=== PATIENT | male | born 1985 | race Two or more races ===

== ENCOUNTER 2016-09-25 09:50 | Emergency (ER) | payer BC, OTHER ==
[2016-09-25 10:05] VITALS: BP 134/83
--- NOTE | 2016-09-25 10:55 | UC ---
FLU HPI - HPI Summary HPI Summary: Fever, cough, body aches, and RAMSEY starting 3 days ago. - History of Current Complaint Chief Complaint: UCHeadache Stated Complaint: FEVER, HEADACHE Time Seen by Provider: 09/25/16 10:32 Hx Obtained From: Patient Onset/Duration: Gradual Onset, Lasting Days Severity Currently: Moderate Severity Initially: Mild Associated Signs & Symptoms: Positive: Fever, Myalgia, Cough, Headache - Allergy/Home Medications Allergies/Adverse Reactions: Allergies Allergy/AdvReac Type Severity Reaction Status Date / Time No Known Allergies Allergy Verified 06/21/15 13:05 Home Medications: Home Medications Egslbakoqyyob-Vxybkmlnsz-Bmiqz [Nyquil Severe Cold/Flu 5-6.25-10-325 mg/15Ml] 1 liq PO 09/25/16 [History] PMH/Surg Hx/FS Hx/Imm Hx Previously Healthy: Yes Endocrine History Of: Denies: Diabetes, Thyroid Disease Cardiovascular History Of: Denies: Cardiac Disorders, Hypertension Respiratory History Of: Denies: COPD, Asthma GI/ History Of: Denies: Ulcer - Surgical History Surgical History: None - Family History Known Family History: Negative: Blood Disorder - Social History Occupation: Unemployed Alcohol Use: Rare Substance Use Type: None Smoking Status (MU): Current Some Day Smoker Review of Systems Constitutional: Fever, Chills, Fatigue Skin: Negative Eyes: Negative ENT: Negative Respiratory: Cough Cardiovascular: Negative Gastrointestinal: Negative Genitourinary: Negative Motor: Negative Neurovascular: Negative Musculoskeletal: Myalgia Neurological: Negative Psychological: Negative All Other Systems Reviewed And Are Negative: Yes Physical Exam Triage Information Reviewed: Yes Appearance: Well-Appearing, No Pain Distress, Well-Nourished Vital Signs: Initial Vital Signs Temp 100.9 F 09/25/16 10:01 Pulse 96 09/25/16 10:01 Resp 18 09/25/16 10:01 BP 134/83 09/25/16 10:01 Pulse Ox 98 09/25/16 10:01 Vital Signs Reviewed: Yes Eye Exam: Normal Eyes: Positive: Conjunctiva Clear ENT: Positive: Hearing grossly normal, Pharynx normal, Nasal congestion, TMs normal Dental Exam: Normal Neck exam: Normal Neck: Positive: Supple, Nontender, No Lymphadenopathy Respiratory Exam: Normal Respiratory: Positive: Chest non-tender, Lungs clear, Normal breath sounds, No respiratory distress, No accessory muscle use Cardiovascular Exam: Normal Cardiovascular: Positive: RRR, No Murmur Musculoskeletal Exam: Normal Neurological Exam: Normal Psychological Exam: Normal Skin Exam: Normal Flu Course/Dx - Differential Dx/Diagnosis Provider Diagnoses: influenza Discharge - Discharge Plan Condition: Stable Disposition: HOME Prescriptions: Albuterol HFA INHALER* [Ventolin HFA Inhaler*] 1 - 2 puff INH Q4H PRN #1 mdi PRN Reason: wheeze, cough Benzonatate CAP* [Tessalon CAP*] 100 mg PO TID PRN #30 cap PRN Reason: Cough Guaifenesin-Codeine [Guaiatussin AC] 5 - 10 ml PO Q6H #120 ml MDD 40mL Patient Education Materials: Influenza (ED) Referrals: User,Conversion [Primary Care Provider] - Additional Instructions: Come back here if you are not fever-free by Wednesday, or at any time if you are having difficulty breathing. INHALED BRONCHODILATORS: You have received a prescription for an inhaled bronchodilator -- a medication which stimulates the airways in the lung to dilate. This improves the flow of air in asthma, bronchitis, and emphysema. These medicines have some similarity to adrenaline, and can cause similar side effects: shakiness, racing heart, and a sense of nervousness. These side effects can be reduced with the use of a spacer and usually decrease with time. Use 1-2 puffs up to every 4 hours as needed for wheezing or tightness in your chest. It may be helpful to use preventatively, such as before bedtime or before going outside into cold air. IF YOU FIND THAT YOU ARE CONSISTENTLY NEEDING THE INHALER MORE THAN 6 TIMES PER DAY, PLEASE CALL OR RETURN FOR FURTHER EVALUATION. COUGH-SUPPRESSANT & EXPECTORANT MEDICATION FOR SLEEPING ONLY: You are to use a cough medication as needed for relief of NIGHTTIME/ BEDTIME symptoms. This medicine is a combination of an expectorant (to make the mucous thinner and more easily "coughed up") and a cough suppressant (to reduce the frequency of coughing). The cough-suppressant medicine is related to narcotics. You may experience mild nausea and sleepiness. Some patients who are very sensitive to narcotics may have stomach pain from this medicine. Taking the medicine with food reduces these side effects. Do not drive or work with machinery until you know how this medicine affects you. The expectorant should have no side effects. Call your doctor if you develop shortness of breath, hives, rash, itching, lightheadedness, or severe nausea and vomiting. TESSALON: You have received a prescription for Tessalon Perles (benzonatate). This is a non-narcotic medicine for relief of cough. It usually works in about 15- 20 minutes and lasts around four hours. When they work, they are usually helpful with a lingering cough at the end of an illness. If you do not find them helpful now, wait several days and try again, as they may help your cough later on. Tessalon Perles should be swallowed. They should not be chewed or dissolved in the mouth (this can produce temporary numbing of the mouth and choking can occur). If you develop any adverse effects such as wheezing, shortness of breath, hives, rash, itching, or lightheadedness, please return at once.
== END 2016-09-25 10:56 | disposition home or self-care (01) ==
LOC: UCEAST 09:50
DX: J11.1 Influenza due to unidentified influenza virus with other respiratory manifestations (principal)
CPT/HCPCS: 99212; G0463

== ENCOUNTER 2017-04-12 09:59 | Emergency (ER) | payer BC ==
[2017-04-12] MEDS ORDERED: Ketorolac INJ* 30 MG/ML 1 ML VIAL IV ONE (11:32)
[2017-04-12] MEDS ORDERED: NS 0.9% 1000 ML* 1,000 ML IV ONE (11:32)
[2017-04-12] MEDS ORDERED: Ondansetron INJ* 2 MG/ML VIAL IV ONE (11:33)
[2017-04-12] MEDS ORDERED: diPHENhydraMINE IV* 50 MG/ML 1 ml VIAL (BENADRYL) IV ONE (11:33)
[2017-04-12 12:52] VITALS: BP 119/72
[2017-04-12] MEDS ORDERED: Ondansetron ODT TAB* 4 MG PO ONE ×2 (13:07→13:10)
--- NOTE | 2017-05-03 14:54 | UC ---
Tania Iyer Alfonso, scribed for Fernanda Evans DO on 04/12/17 at 1133 . Headache HPI - HPI Summary HPI Summary: This patient is a 31 year old M presenting to [facility] with a chief complaint of right sided headache since 2 days ago. Pt rates the pain 8/10 in severity. Symptoms aggravated by bring lights and alleviated by lying down. Symptoms not alleviated by Excedrin. The patient reports insomnia, photophobia, nausea, and dizziness. The patient denies vomiting, sore throat, ear ache, sinus infection, SOB, CP, rashes, and dehydration. He denies any PMHx. FHx of DM and HTN. High blood pressure noted, likely secondary to condition. - History Of Current Complaint Chief Complaint: UCHeadache Stated Complaint: HEAD PAIN Time Seen by Provider: 04/12/17 10:18 Hx Obtained From: Patient Onset/Duration: Sudden Onset - 2, Lasting Days - 2, Still Present Onset Of Symptoms: Sudden, Still Present Currently Pain Is: Current Pain Scale(0-10)= - 8/10 Pain Intensity: 8 Pain Scale Used: 0-10 Numeric Timing: Constant Location of Headache: Other: - Right sided Aggravating Factor: Bright Lights Allevating Factors: Nothing Associated Signs And Symptoms: Positive: Other (Noted In Comments) - The patient reports insomnia, photophobia, nausea, and dizziness. The patient denies vomiting, sore throat, ear ache, sinus infection, SOB, CP, rashes, and dehydration. - Allergies/Home Medications Allergies/Adverse Reactions: Allergies Allergy/AdvReac Type Severity Reaction Status Date / Time No Known Allergies Allergy Verified 06/21/15 13:05 Home Medications: Home Medications Qkbvugb-Iiuhexkugrltd-Fvbfoiii [Excedrin Migraine] 2 tab PO 04/12/17 [History] PMH/Surg Hx/FS Hx/Imm Hx Previously Healthy: Yes - Surgical History Surgical History: None - Family History Known Family History: Positive: Hypertension, Diabetes Negative: Blood Disorder - Social History Alcohol Use: Rare Substance Use Type: None Smoking Status (MU): Former Smoker Review of Systems Constitutional: Other - Negative dehydration. Skin: Other - Negative rash and dehydration Eyes: Photophobia ENT: Other - Negative sore throat, ear ache, sinus infection. Respiratory: Other - Negative SOB Cardiovascular: Other - Negative CP Gastrointestinal: Nausea, Other - Negative vomiting Neurological: Headache, Other - Positive insomnia and dizziness; All Other Systems Reviewed And Are Negative: Yes Physical Exam Triage Information Reviewed: Yes Appearance: Well-Appearing, No Pain Distress, Well-Nourished Vital Signs: Initial Vital Signs Temp 98.5 F 04/12/17 10:05 Pulse 78 04/12/17 10:05 Resp 18 04/12/17 10:05 BP 134/74 04/12/17 10:05 Pulse Ox 100 04/12/17 10:05 Vital Signs Reviewed: Yes Eyes: Positive: Conjunctiva Clear. Negative: Discharge ENT: Positive: Hearing grossly normal, TMs normal. Negative: Tonsillar swelling , Tonsillar exudate, Muffled/hoarse voice Neck exam: Normal Neck: Positive: Supple Respiratory: Positive: Lungs clear, Normal breath sounds, No respiratory distress, No accessory muscle use Cardiovascular: Positive: RRR, No Murmur Abdomen Description: Positive: Nontender, Soft Bowel Sounds: Positive: Present Musculoskeletal Exam: Normal Musculoskeletal: Positive: Strength Intact Neurological Exam: Other - A&Ox3, CN II-XII INTACT, SENSORY MOTOR INTACT, REFLEXES INTACT, NO CEREBELLAR SIGNS, FACIAL SYMMETRY, NEGATIVE ROMBERG, NORMAL GAIT Psychological: Positive: Age Appropriate Behavior Skin: Positive: Other - Dry, warm, normal color Re-Evaluation - Re-Evaluation First Eval Re-Evaluation Time: 13:04 Change: Improved Comment: Patient notes significant subjective improvement. No dizziness, nausea , or photophobia. He rates the current pain 4/10 in severity. Headache Course/Dx - Differential Dx/Diagnosis Differential Diagnosis/HQI/PQRI: Migraine, Sinus Headache, Tension Headache, Viral Syndrome Provider Diagnoses: migraine Discharge - Discharge Plan Condition: Stable Disposition: HOME Patient Education Materials: Migraine Headache (ED) Referrals: Erika Landa MD [Medical Doctor] - 3 Days Non Staff,Doctor [Primary Care Provider] - Additional Instructions: WE HAVE TREATED YOU FOR A MIGRAINE WITH IV FLUIDS, A TORADOL INJESTION, BENADRYL AND ZOFRAN. THIS HAS HAD SIGNIFICANT BENEFIT FOR YOU. IF YOU STILL HAVE SX IN 4-6 HOURS, YOU CAN TAKE ANOTHER BENADRYL. IF YOU HAVE NAUSEA AGAIN, YOU CAN TAKE A ZOFRAN. The documentation as recorded by the Tania bernal Alfonso accurately reflects the service I personally performed and the decisions made by , Fernanda Evans DO.
== END 2017-04-12 13:57 | disposition home or self-care (01) ==
LOC: UCEAST 09:59
DX: G43.909 Migraine, unspecified, not intractable, without status migrainosus (principal); R11.0 Nausea; Z87.891 Personal history of nicotine dependence
CPT/HCPCS: 96361; 96374; 96375; 99212; A9270-GY; G0463; J1200; J1885; J2405

== ENCOUNTER 2018-08-03 16:04 | Emergency (ER) | payer BC, OTHER ==
--- NOTE | 2018-08-03 16:12 | UC ---
Ear Complaint HPI - HPI Summary HPI Summary: 32 yo male presents with RIGHT ear pain for the last week. He tells me that about 2 weeks ago he had "flu symptoms" - cough, sinus congestion, hot/cold chills, and body aches. Those symptoms have resolved, but over the last week has had increasingly painful right ear pain and pressure that causes him a headache. He has not been taking anything OTC for this discomfort. Denies fever , chills, dizziness, trauma, changes in hearing, sinus symptoms, sore throat. - History of Current Complaint Stated Complaint: EAR ACHE, AND HEADACHE Time Seen by Provider: 08/03/18 16:06 Hx Obtained From: Patient Severity Initially: Mild Severity Currently: Moderate Pain Intensity: 7 Pain Scale Used: 0-10 Numeric - Allergies/Home Medications Allergies/Adverse Reactions: Allergies Allergy/AdvReac Type Severity Reaction Status Date / Time No Known Allergies Allergy Verified 08/03/18 16:12 PMH/Surg Hx/FS Hx/Imm Hx - Additional Past Medical History Additional PMH: None - Surgical History Surgical History: None - Family History Known Family History: Positive: Hypertension, Diabetes Negative: Blood Disorder - Social History Alcohol Use: Rare Substance Use Type: None Smoking Status (MU): Former Smoker Review of Systems All Other Systems Reviewed And Are Negative: Yes Constitutional: Positive: Negative Skin: Positive: Negative Eyes: Positive: Negative ENT: Positive: Ear Ache Respiratory: Positive: Negative Cardiovascular: Positive: Negative Gastrointestinal: Positive: Negative Neurovascular: Positive: Negative Neurological: Positive: Negative Psychological: Positive: Negative Physical Exam - Summary Physical Exam Summary: GENERAL: NAD. WDWN. No pain distress. SKIN: No rashes, sores, lesions, or open wounds. HEENT: Head: AT/NC Eyes: EOM intact. Conjunctiva clear without inflammation or discharge. Ears: Hearing grossly normal. RIGHT ear: canal with moderate erythema. No drainage. TM with mild erythema and bulging. LEFT ear: WNL. TM intact. Nose: Nasal mucosa pink and moist. NTTP maxillary and frontal sinus. Throat: Posterior oropharynx without exudates, erythema, or tonsillar enlargement. Uvula midline. NECK: Supple. Nontender. No lymphadenopathy. CHEST: CTAB. No r/r/w. No accessory muscle use. Breathing comfortably and in no distress. CV: RRR. Without m/r/g. Pulses intact. NEURO: Alert. PSYCH: Age appropriate behavior. Triage Information Reviewed: Yes Vital Signs: Vital Signs: Temp Pulse Resp BP Pulse Ox 98.9 F 70 18 153/93 100 08/03/18 16:15 08/03/18 16:15 08/03/18 16:15 08/03/18 16:15 08/03/18 16:15 Vital Signs Reviewed: Yes Ear Complaint Course/Dx - Course Course Of Treatment: Otitis media right - will treat with amoxicillin 875mg - Differential Dx/Diagnosis Provider Diagnosis: Right otitis media Discharge - Sign-Out/Discharge Documenting (check all that apply): Patient Departure All imaging exams completed and their final reports reviewed: No Studies - Discharge Plan Condition: Stable Disposition: HOME Prescriptions: Amoxicillin PO (*) [Amoxicillin 875 MG (*)] 875 mg PO BID #20 tab Patient Education Materials: Ear Infection (ED) Referrals: Non Staff,Doctor [Medical Doctor] - Additional Instructions: If you develop a fever, shortness of breath, chest pain, new or worsening symptoms - please call your PCP or go to the ED. Your blood pressure was high at todays visit. Please see your primary provider within 4 weeks for recheck and re-evaluation. - Billing Disposition and Condition Condition: STABLE Disposition: Home
[2018-08-03 16:19] VITALS: BP 153/93
== END 2018-08-03 16:28 | disposition home or self-care (01) ==
LOC: UCEAST 16:04
DX: H66.91 Otitis media, unspecified, right ear (principal); Z87.891 Personal history of nicotine dependence
CPT/HCPCS: 99212; G0463

== ENCOUNTER 2018-08-08 10:20 | Emergency (ER) | payer OTHER ==
[2018-08-08 10:58] VITALS: BP 117/76
--- NOTE | 2018-08-08 11:09 | ED ---
Lower Extremity - HPI Summary HPI Summary: 32-year-old male presents with right great toe pain since yesterday. He denies any injury. He states area swollen and red. He states he drinks alcohol occasionally. He denies any numbness or tingling. He is still able to ambulate with pain. No fevers. No spreading redness. - History of Current Complaint Chief Complaint: UCLowerExtremity Stated Complaint: R FOOT PAIN Time Seen by Provider: 08/08/18 11:01 Pain Intensity: 7 - Allergies/Home Medications Allergies/Adverse Reactions: Allergies Allergy/AdvReac Type Severity Reaction Status Date / Time No Known Allergies Allergy Verified 08/08/18 10:58 PMH/Surg Hx/FS Hx/Imm Hx Endocrine/Hematology History: Denies: Hx Diabetes, Hx Thyroid Disease Cardiovascular History: Denies: Hx Hypertension Respiratory History: Denies: Hx Asthma, Hx Chronic Obstructive Pulmonary Disease (COPD) GI History: Denies: Hx Ulcer - Surgical History Surgery Procedure, Year, and Place: declined Infectious Disease History: No Infectious Disease History: Denies: Hx Hepatitis, Hx Human Immunodeficiency Virus (HIV), Traveled Outside the in Last 30 Days - Family History Known Family History: Positive: Hypertension, Diabetes Negative: Blood Disorder - Social History Alcohol Use: Rare Substance Use Type: Reports: None Smoking Status (MU): Former Smoker Review of Systems Negative: Fever Negative: Chest Pain Negative: Shortness Of Breath Positive: Myalgia - right big toe pain All Other Systems Reviewed And Are Negative: Yes Physical Exam Triage Information Reviewed: Yes Vital Signs On Initial Exam: Initial Vitals Temp Pulse Resp BP Pulse Ox 98.7 F 63 18 117/76 99 08/08/18 10:54 08/08/18 10:54 08/08/18 10:54 08/08/18 10:54 08/08/18 10:54 Vital Signs Reviewed: Yes Appearance: Positive: Well-Appearing Skin: Positive: Warm, Dry, Other - mild erythema and warmth to right big toe Head/Face: Positive: Normal Head/Face Inspection Eyes: Positive: Normal, Conjunctiva Clear ENT: Positive: Pharynx normal Respiratory/Lung Sounds: Positive: Clear to Auscultation, Breath Sounds Present Cardiovascular: Positive: Normal, RRR Musculoskeletal: Positive: Strength/ROM Intact - right great toe, Other - good pulses Neurological: Positive: Normal Psychiatric: Positive: Normal Diagnostics - Vital Signs Vital Signs Temp Pulse Resp BP Pulse Ox 08/08/18 10:54 98.7 F 63 18 117/76 99 - Laboratory Lab Statement: Any lab studies that have been ordered have been reviewed, and results considered in the medical decision making process. - Radiology knee Radiology Interpretation Completed By: Radiologist Summary of Radiographic Findings: no fx Lower Extremity Course/Dx - Course Course Of Treatment: 32-year-old male presents with right great toe pain since yesterday. He denies any injury. He states area swollen and red. He states he drinks alcohol occasionally. He denies any numbness or tingling. He is still able to ambulate with pain. No fevers. No spreading redness. On exam mild edema and erythema of the right great toe. Most consistent with gout. X- ray normal. Will treat with an indomethacin. Patient understands agrees with plan. - Diagnoses Differential Diagnosis/HQI/PQRI: Positive: Fracture (Closed), Gout, Septic Arthritis Provider Diagnoses: Gouty arthritis of right great toe Discharge - Sign-Out/Discharge Documenting (check all that apply): Patient Departure All imaging exams completed and their final reports reviewed: Yes - Discharge Plan Condition: Good Disposition: HOME Prescriptions: Indomethacin CAP* [Indocin CAP*] 50 mg PO TID PRN #21 cap PRN Reason: Pain Patient Education Materials: Gout (ED) Referrals: Erika Landa MD [Primary Care Provider] - Additional Instructions: Take indomethacin three times a day until pain resolves Place ice on the area Can take Tylenol in addition for pain every 6 hours, do not use Advil, Aleve or ibuprofen follow up with primary within 5 days Return to if develop any new or worsening symptoms - Billing Disposition and Condition Condition: GOOD Disposition: Home - Attestation Statements Provider Attestation: Per institutional requirements, I have reviewed the chart, however, I was not consulted specifically or made aware of this patient by the midlevel provider. I did not personally evaluate, interact with , or disposition this patient.
== END 2018-08-08 11:45 | disposition home or self-care (01) ==
LOC: UCEAST 10:20
DX: M10.9 Gout, unspecified (principal); Z87.891 Personal history of nicotine dependence
CPT/HCPCS: 99212; G0463

== ENCOUNTER → 2018-10-27 13:38 | Emergency (ER) | payer OTHER ==
[~2018-10-27 13:38] MED LIST: Ketorolac INJ* 30 MG/ML 1 ML VIAL IM ONE
[2018-10-27 17:12] VITALS: BP 111/60
--- NOTE | 2018-10-27 17:45 | ED ---
Lower Extremity - HPI Summary HPI Summary: Patient is a 33-year-old male who presents emergency department for pain and swelling to his right foot 2 days. Patient denies any injuries or falls. Patient states he was diagnosed with gout about 2 months ago and placed on anti- inflammatories. Patient states his symptoms resolved until last few days. Patient has not aware of any change in his diet except eating scallops a few days ago. Patient otherwise denies fever, chills, nausea, vomiting. Has no past medical history. Symptoms are mild in severity. Walking and touching affected area makes symptoms worse. Nothing makes symptoms better. - History of Current Complaint Chief Complaint: EDExtremityLower Stated Complaint: PAIN IN RIGHT FOOT Time Seen by Provider: 10/27/18 15:54 Hx Obtained From: Patient Pain Intensity: 4 Pain Scale Used: 0-10 Numeric - Allergies/Home Medications Allergies/Adverse Reactions: Allergies Allergy/AdvReac Type Severity Reaction Status Date / Time No Known Allergies Allergy Verified 08/08/18 10:58 Home Medications: Home Medications Escitalopram Oxalate [Lexapro 10 mg] 10 mg PO DAILY 10/27/18 [History Confirmed 10/27/18] PMH/Surg Hx/FS Hx/Imm Hx Previously Healthy: Yes Endocrine/Hematology History: Denies: Hx Diabetes, Hx Thyroid Disease Cardiovascular History: Denies: Hx Hypertension Respiratory History: Denies: Hx Asthma, Hx Chronic Obstructive Pulmonary Disease (COPD) GI History: Denies: Hx Ulcer - Surgical History Surgery Procedure, Year, and Place: declined Infectious Disease History: No Infectious Disease History: Denies: Hx Hepatitis, Hx Human Immunodeficiency Virus (HIV), Traveled Outside the [place] in Last 30 Days - Family History Known Family History: Positive: Hypertension, Diabetes Negative: Blood Disorder - Social History Occupation: Employed Full-time Lives: With Family Alcohol Use: Rare Substance Use Type: Reports: None Smoking Status (MU): Former Smoker Review of Systems Constitutional: Negative Negative: Fever, Chills Gastrointestinal: Negative Negative: Vomiting, Nausea Positive: Other - pain to right foot All Other Systems Reviewed And Are Negative: Yes Physical Exam Triage Information Reviewed: Yes Vital Signs On Initial Exam: Initial Vitals Temp Pulse Resp BP Pulse Ox 98.1 F 69 16 128/84 98 10/27/18 13:43 10/27/18 13:43 10/27/18 13:43 10/27/18 13:43 10/27/18 13:43 Vital Signs Reviewed: Yes Appearance: Positive: Well-Appearing - Pt. sitting on bed in NAD. Family member present. Skin: Positive: Warm, Dry Head/Face: Positive: Normal Head/Face Inspection Eyes: Positive: Normal, EOMI Neck: Positive: Supple Musculoskeletal: Positive: Other - Mild edema and pain noted to right first MTP joint with minimal erythema. No wounds. Full ROM of ankle Neurological: Positive: Normal, CN Intact II-III Psychiatric: Positive: Affect/Mood Appropriate Diagnostics - Vital Signs Vital Signs Temp Pulse Resp BP Pulse Ox 10/27/18 17:12 98.9 F 64 15 111/60 100 10/27/18 15:36 98.9 F 68 16 113/85 98 10/27/18 13:43 98.1 F 69 16 128/84 98 - Laboratory Lab Statement: Any lab studies that have been ordered have been reviewed, and results considered in the medical decision making process. Lower Extremity Course/Dx - Course Course Of Treatment: Patient presenting with right great toe pain and swelling with a history of gout. He is afebrile. No injury. We'll treat with anti- inflammatories. Patient requesting a shot of pain medication in the ER and was given a dose of Toradol. Instructed on foods to avoid. Will follow up with his family doctor. Return to the ER if symptoms change or worsen. Patient understands and agrees with plan. - Diagnoses Differential Diagnosis/HQI/PQRI: Positive: Arthritis, Cellulitis, Contusion, Sprain, Strain Provider Diagnoses: Gout attack Discharge - Sign-Out/Discharge Documenting (check all that apply): Patient Departure Patient Received Moderate/Deep Sedation with Procedure: No - Discharge Plan Condition: Good Disposition: HOME Prescriptions: Naproxen [Naproxen 500 mg tab] 500 mg PO BID #20 tablet. Patient Education Materials: Low Purine Diet (ED), Gout (ED) Referrals: Erika Landa MD [Primary Care Provider] - Additional Instructions: Follow up with your PCP Take medication as directed Avoid red meats, cheese, alcohol Return to ER if symptoms change or worsen - Billing Disposition and Condition Condition: GOOD Disposition: Home
== END | disposition home or self-care (01) ==
LOC: ED 13:38
DX: M10.9 Gout, unspecified (principal); Z87.891 Personal history of nicotine dependence
CPT/HCPCS: 96372; 99282; J1885

== ENCOUNTER 2019-01-22 17:14 | Emergency (ER) | payer OTHER ==
[2019-01-22 17:24] VITALS: BP 117/80
--- NOTE | 2019-01-22 17:40 | UC ---
Shoulder Pain HPI - HPI Summary HPI Summary: Patient is a 33 year old female , who present today to the urgent care with right shoulder pain for past 10 days. He denies any specific injury or trauma. 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 Denies any past injury or episodes. Points to the pain mainly in the upper right shoulder and the right-sided neck area. Denies any radiation down the right arm, numbness or tingling. he also reports dizziness, nausea and headaches. He has no episode of vomiting so far, denies any abdominal pain, diarrhea or constipation. No fever, chills, chest pain or shortness of breath reported He has not had any treatment so far - History of Current Complaint Chief Complaint: UCUpperExtremity Stated Complaint: R SHOULDER PAIN Time Seen by Provider: 01/22/19 17:26 Hx Obtained From: Patient Pain Intensity: 7 - Allergies/Home Medications Allergies/Adverse Reactions: Allergies Allergy/AdvReac Type Severity Reaction Status Date / Time No Known Allergies Allergy Verified 01/22/19 17:25 PMH/Surg Hx/FS Hx/Imm Hx - Additional Past Medical History Additional PMH: Past Medical History : None Past Surgical History: No Past History of Procedure Family History : noncontributory Social History : Occasional alcohol,formersmoker, no drug use. 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 Previously Healthy: Yes - Surgical History Surgical History: None Surgery Procedure, Year, and Place: declined - Family History Known Family History: Positive: Hypertension, Diabetes Negative: Blood Disorder - Social History Alcohol Use: Rare Substance Use Type: None Smoking Status (MU): Former Smoker - Immunization History Most Recent Tetanus Shot: UNK Review of Systems All Other Systems Reviewed And Are Negative: Yes Constitutional: Positive: Negative Skin: Positive: Negative Eyes: Positive: Negative ENT: Positive: Negative Respiratory: Positive: Negative Cardiovascular: Positive: Negative Gastrointestinal: Positive: Nausea, Other - dizziness Genitourinary: Positive: Negative Motor: Positive: Negative Neurovascular: Positive: Negative Musculoskeletal: Positive: Negative Neurological: Positive: Headache - suboccipital Psychological: Positive: Negative Is Patient Immunocompromised?: No Physical Exam - Summary Physical Exam Summary: Physical Exam: Const: Appears well. No signs of apparent distress present. Alert and oriented x 3. Musculo: Walks with a normal gait. Head/Face: Atraumatic, normocephalic on inspection. Eyes: EOMI and PERRLA in both eyes. ENT: Hearing normal, Respiratory: Respirations are unlabored. CVS: Regular rate and Rhythm, S1S2 normal , no murmurs identified. Extremities: Peripheral circulation is grossly normal. Pulses 2+ Abdomen : Soft non tender , nondistended , Bowel sounds present . No guarding , rebound tenderness or rigidity noted. Skin: No lesions or rash located on the upper extremities or on the lower extremities. Neuro: Cranial nerves II to XII intact, motor and sensory intact. DTR Intact bilaterally. Mood is normal. Affect is normal. C-spine: inspection:No midline tenderness noted. There is tenderness to palpation in the right paraspinal and the right trapezius muscles. full range of motion, pain-free. Spurling test is negative bilaterally. Warner test is negative bilaterally. DTRs intact in upper extremities bilaterally right Shoulder: Inspection and Palpation: No visible deformities noted. No evidence of swelling , erythema or atrophy present.here is tenderness to palpation at the right trapezius muscle Glenohumeral joint: Full range of motion , with slight assistance but painful at extreme Strength: supraspinatus 5/5, Infraspinatus 5/5, subscapularis 5/5, External rotation 5/5. Tone: Normal muscle tone of the shoulder. Special tests: Empty can test negative, Neer sign and Juarez test negative, lift off test negative, cross arm test negative, . Apprehension test negative. Anterior and posterior drawer test negative. Relocation test negative. Carlisle' s test negative. Crank labral test negative. No sulcus sign noted. Normal distal sensation and pulses. Triage Information Reviewed: Yes Vital Signs: Initial Vital Signs Temp 98.8 F 01/22/19 17:19 Pulse 67 01/22/19 17:19 Resp 18 01/22/19 17:19 BP 117/80 01/22/19 17:19 Pulse Ox 100 01/22/19 17:19 Vital Signs Reviewed: Yes Shoulder Course/Dx - Course Course Of Treatment: During the visit today, we discussed the findings and further plan. Symptoms consistent with right trapezius strain . his nausea,dizziness and headache appears to be consistent with the paraspinal strain . does not appear to be GI related He was given 1 dose of Zofran and naproxen here in the clinic. I will prescribe Zofran, , muscle relaxant and naproxen. Plan to start physical therapy. Patient expressed understanding . - Differential Dx/Diagnosis Provider Diagnosis: Right shoulder pain, Strain of right trapezius muscle Discharge - Sign-Out/Discharge Documenting (check all that apply): Patient Departure All imaging exams completed and their final reports reviewed: No Studies - Discharge Plan Condition: Stable Disposition: HOME Prescriptions: Cyclobenzaprine TAB* [Flexeril 10 MG TAB*] 10 mg PO BID PRN 10 Days #20 tab PRN Reason: Spasms - Neck Naproxen [Naproxen 500 mg tab] 500 mg PO BID PRN 10 Days #20 tablet.dr PRN Reason: Pain Ondansetron TAB* [Zofran 4 MG Tab*] 4 mg PO Q8H PRN 7 Days #21 tab PRN Reason: Nausea Patient Education Materials: Cervical Strain (DC), Muscle Strain (ED) Referrals: Erika Landa MD [Primary Care Provider] - Sridhar Leon MD [Medical Doctor] - 2 Weeks Additional Instructions: Please start taking the medication as prescribed to the pharmacy . avoid any activity that worsen your pain start physical therapy Follow up with orthopedics in 2 weeks Return to Urgent care / ER if symptoms get worse. - Billing Disposition and Condition Condition: STABLE Disposition: Home
[2019-01-22] MEDS ORDERED: Ondansetron ODT TAB* 4 MG PO ONE (17:44)
[2019-01-22] MEDS ORDERED: Naproxen TAB* 250 MG PO ONE (17:51)
== END 2019-01-22 18:05 | disposition home or self-care (01) ==
LOC: UCEAST 17:14
DX: M25.511 Pain in right shoulder (principal); S46.811A Strain of other muscles, fascia and tendons at shoulder and upper arm level, right arm, initial encounter; X58.XXXA Exposure to other specified factors, initial encounter; Y92.9 Unspecified place or not applicable; R42 Dizziness and giddiness; R11.0 Nausea; R51 Headache; Z87.891 Personal history of nicotine dependence
CPT/HCPCS: 99212; A9270-GY; G0463

== ENCOUNTER 2019-11-06 17:41 | Emergency (ER) | payer OTHER ==
--- OUTSIDE RECORDS SUMMARY | 2019-11-06 17:47 | XMS REPORT | Continuity of Care Document ---
:1985 External Reference #:[id number] Author Name Erika Landa M.D. Address [address] [place] [address] Care Team Providers Name Role Phone Erika Landa M.D. 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 Onset: 03/19/2015 Anemia Erika Landa M.D. Onset: 06/04/2015 Essential hypertension Erika Landa M.D. Onset: 08/23/2019 Hyperlipidemia Erika Landa M.D. Onset: 09/02/2019 Social History Type Date Description Comments Sex Unknown Tobacco Use Start: Unknown End: Former Cigarette Smoker quit 2012, smoked Unknown 1 Pack Daily 1ppd x 5 years ETOH Use Rare Tobacco Use Start: Unknown End: Patient is a former Unknown smoker Smoking Status Reviewed: 09/04/19 Patient is a former smoker Exercise Exercises rarely Type/Frequency Allergies, Adverse Reactions, Alerts Description No Known Drug Allergies Medications Active Medications SIG Qnty Indications Ordering Provider Date No Active Medications Unknown 10/10/2019 History Medications Clobetasol Propionate apply to affected 1tube L20.9 Kiran ANaresh 09/04/2019 - areas twice a day Dipika Mays 09/04/2019 0.05% Ointment for the next 2 weeks. Triamcinolone apply twice a day 15gm L20.9 Kiran ANaresh 09/04/2019 - Acetonide to affected Dipika Mays 10/10/2019 0.1% Cream lesions for the next 2 weeks or until resolved No Active Medications Unknown 08/23/2019 - 08/23/2019 Lisinopril 1 by mouth every 30tabs I10 Erika Landa 08/23/2019 - 10mg Tablets day M.D. 10/10/2019 Meclizine HCL 1-2 tab three 30tabs R42 Erika Bucyrus, 08/23/2019 - 12.5mg times a day as M.D. 10/10/2019 Tablets needed Immunizations CPT Code Status Date Vaccine Lot # [id number] Given 07/01/2018 Influenza Vac, Quadrivalent, Slit Virus, Im [id number] Given 06/04/2015 Tdap Tetanus, W Pertussis [id number] Given 06/04/2015 Influenza Vac, Quadrivalent, Slit Virus, Im [id number] Vital Signs Date Vital Result Comment 10/10/2019 11:18am BP Systolic 102 mmHg BP Diastolic 78 mmHg Heart Rate 84 /min Body Temperature 98.2 F Weight 174.00 lb 09/04/2019 1:16pm BP Systolic 132 mmHg BP Diastolic 82 mmHg Heart Rate 90 /min Body Temperature 98.4 F Weight 175.00 lb Results Test Acquired Date Facility Test Result H/L Range Note Vi Panel--[place] [facility] [place] < 10 IU/mL Normal <15 1 [place] 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 09/04/2019 [facility] U1 [employer]ORTS BOOK WRITER IgG Autoabs 0.4 U 2 Igg Autoabs Ssa/SSB Abs Igg 09/04/2019 [facility] SS-A/Ro Antibody <0.2 U 3 SS-B/La Antibody <0.2 U 4 Connective Tissue Panel 09/04/2019 [facility] Anti-Nuclear Antibody 0.3 U 5 Cyclic Citrullinated Peptide <15.6 U 6 Interpretation See Comment 7 Laboratory test finding 09/04/2019 [facility] Reactive Protein 1.50 mg/L Normal <8.01 8 Lyme Disease AB 09/04/2019 [facility] IgG Immunoblot Negative Negative Immunoblot WB IgG detected against None kDa IgM Immunoblot Negative Negative IgM detected against None kDa Lyme Disease Interpretation See Comment 9 CBC Electronic Fma 09/04/2019 [facility]) WBC 7.3 x10^3/UL 4.0- 10.0 RBC 6.50 x10^6/UL High 3.93-6.00 10 HGB 14.3 g/dL 12.0-17.0 HCT 46 % 35-50 MCV 70.0 fL Low 80.0-95.0 11 MCH 22.0 pg Low 25.6-32.2 12 MCHC 31.4 g/dL Low 32.2-36.0 13 RDW-CV 15.3 % High 11.6-14.4 PLT 308 x10^3/UL 163-400 MPV 12.0 fL 9.4-12.4 Haley# 4.01 x10^3/UL 1.56-6.13 Lymph# 2.57 x10^3/UL 1.18-3.74 Brooks# 0.50 x10^3/UL 0.24-0.82 Eos # 0.2 x10^3/UL 0.0-0.5 Baso # 0.01 x10^3/UL 0.01-0.08 Haley% 55.1 % 34.0-70.0 Lymph % 35.3 % 20.0-52.0 Brooks% 6.9 % 5.0-12.0 Eos% 2.5 % 0.7-7.0 Baso% 0.1 % 0.1-1.2 Laboratory test 09/04/2019 [facility] Sedimentation Rate 4 mm 0-15 M finding (607)- - 0-20 F Comprehensive 08/23/2019 [facility] Bushra([facility]) Sodium 137 mEq/L 134-149 Metabolic Prof Potassium 3.6 mEq/L 3.6-5.5 Chloride 102 mEq/L 94-112 Carbon Dioxide 27 mEq/L 21-32 Glucose 110 mg/dL High 70-105 14 BUN 9 mg/dL 6-26 Creatinine 1.0 mg/dL 0.6-1.4 BUN/Creat Ratio 9.0 CALC 8.0-36.0 Calcium 10.0 mg/dL 8.6-10.2 Total Protein 8.1 g/dL 6.4-8.3 Albumin 5.1 g/dL 3.8-5.5 Globulin 3.0 g/dL 2.0-4.8 A/G Ratio 1.7 CALC 0.6-2.3 Alk. Phosphatase 75 U/L 22-95 Alt (SGPT) 48 U/L High 7-35 15 Ast (Sgot) 28 U/L 5-34 Total Bilirubin 0.5 mg/dL 0.2-1.3 GFR Non- >60 ml/min/1.73m^ >=60 GFR >60 ml/min/1.73m^ >=60 Lipid Profile 08/23/2019 [facility] Bushra([facility]) Cholesterol 259 mg/dL High 120-200 Triglycerides 373 mg/dL High 30-200 HDL Cholesterol 35 mg/dL 30-70 LDL (Calculated) 149 CALC High 0-129 VLDL Cholesterol 75 mg/dL High 0-50 HDL Risk Factor 7.4 CALC High 0.0-4.4 Laboratory test finding 08/23/2019 Kameron Tomlinson([facility]) TSH 2.42 mIU/L 0.50-6.00 Serum Iron 96 g/dL 60-150 Vitamin B-12 756 pg/mL 230-1050 Ferritin 72 ng/mL 22-340 LDL, Direct 171 mg/dL High 0-130 CBC Electronic a 08/23/2019 Kameron Tomlinson([facility]) WBC 7.9 x10^3/UL 4.0- 10.0 RBC 6.33 x10^6/UL High 3.93-6.00 16 HGB 14.1 g/dL 12.0-17.0 HCT 45 % 35-50 MCV 70.6 fL Low 80.0-95.0 MCH 22.3 pg Low 25.6-32.2 MCHC 31.5 g/dL Low 32.2-36.0 RDW-CV 15.1 % High 11.6-14.4 17 PLT 274 x10^3/UL 163-400 MPV 12.2 fL 9.4-12.4 Haley# 4.83 x10^3/UL 1.56-6.13 Lymph# 2.30 x10^3/UL 1.18-3.74 Brooks# 0.50 x10^3/UL 0.24-0.82 Eos # 0.2 x10^3/UL 0.0-0.5 Baso # 0.03 x10^3/UL 0.01-0.08 Haley% 61.5 % 34.0-70.0 Lymph % 29.3 % 20.0-52.0 Brooks% 6.4 % 5.0-12.0 Eos% 2.3 % 0.7-7.0 Baso% 0.4 % 0.1-1.2 1 [id number] 4 sst 2 REFERENCE VALUE <1.0 (Negative) Test Performed by: [facility] [place] [address] Locomotive Firer: Lance Grande M.D. Ph.D.; CLIA# [id number] 3 REFERENCE VALUE <1.0 (Negative) 4 REFERENCE VALUE <1.0 (Negative) Test Performed by: [facility] [place] [address] Locomotive Firer: Lance Grande M.D. Ph.D.; CLIA# [id number] 5 REFERENCE VALUE <=1.0 (Negative) 6 REFERENCE VALUE <20.0 (Negative) 7 Tests for antibodies to dsDNA and ASHA antigens are not performed automatically unless the VI result is > or = 3.0 U. Studies performed at [facility] indicate that positive VI results <3.0 U are rarely accompanied by positive second order tests. Test Performed by: [facility] [place] [address] Locomotive Firer: Lance Grande M.D. Ph.D.; CLIA# [id number] 8 [id number] 4 sst 9 Specific serologic response to B. burgdorferi infection is not detected, but cannot rule out early infection during which low or undetectable antibody levels to B. burgdorferi may be present. If clinically indicated, a new serum specimen should be submitted in 7-14 days. ADDITIONAL INFORMATION Per CDC criteria, the Lyme IgG Immunoblot is interpreted as positive if IgG-class antibodies are detected to >=5 B. burgdorferi proteins, and the Lyme IgM Immunoblot is interpreted as positive if IgM-class antibodies are detected to >=2 B. burgdorferi proteins. Immunoblot patterns not meeting these criteria should not be interpreted as positive. Epitopes from certain B. burgdorferi proteins (e.g., p41) are conserved across other bacteria, which may lead to the detection of IgM- and/or IgG-class antibodies on the Lyme disease immunoblots in patients without Lyme disease. Immunoblot should only be ordered on specimens that are positive or equivocal by a FDA-licensed Lyme disease antibody screening test (e.g., EIA). Results of the Lyme IgM immunoblot should not be considered in patients with >= 30 days of symptoms. Test Performed by: [place] [address] Locomotive Firer: Lance Grande M.D. Ph.D.; CLIA# [id number] 10 consistent w/ previous results 11 consistent w/ previous results 12 consistent w/ previous results 13 consistent w/ previous results 14 NON-FASTING 15 consistent w/ previous results 16 consistent w/ previous results 17 consistent w/ previous results Procedures Description No Information Available Medical Devices Description No Information Available Encounters Type Date Location Provider Dx Diagnosis Office Visit 09/04/2019 [facility] Katia Bello, I10 Essential ( primary) 1:15p THOMAS hypertension D64.9 Anemia, unspecified R42 Dizziness and giddiness L20.9 Atopic dermatitis, unspecified E78.2 Mixed hyperlipidemia Office Visit 08/23/2019 2:40p [facility] Office Erika Landa I10 Essential (primary) M.DNaresh hypertension D64.9 Anemia, unspecified R42 Dizziness and giddiness E78.5 Hyperlipidemia, unspecified Assessments Date Code Description Provider 10/10/2019 I10 Essential (primary) hypertension Erika Landa M.D. 09/04/2019 I10 Essential (primary) hypertension THOMAS Osorio 09/04/2019 D64.9 Anemia, unspecified THOMAS Osorio 09/04/2019 R42 Dizziness and giddiness THOMAS Osorio 09/04/2019 L20.9 Atopic dermatitis, unspecified THOMAS Osorio 09/04/2019 E78.2 Mixed hyperlipidemia THOMAS Osorio 08/23/2019 I10 Essential (primary) hypertension Erika Landa M.D. 08/23/2019 D64.9 Anemia, unspecified Erika Landa M.D. 08/23/2019 R42 Dizziness and giddiness Erika Landa M.D. 08/23/2019 E78.5 Hyperlipidemia, unspecified Erika Landa M.D. Plan of Treatment Future Appointment(s):02/14/2020 10:20 am - Erika Landa M.D. at [facility] [id number]/10/2019 - Erika Landa M.D.I10 Essential (primary) hypertensionComments:The patient will continue to monitor blood pressure and let me know the blood pressure results if there are readings persistently above 140/90. Goal blood pressure is less than 130/80. Recommend low salt/cardiac diet such as the Mediterranean diet and routine exercise at least 30 minutes a day.Follow up:cpeAllNew Medication:No Active Medications -Comments:Medication Management Patient Understands medications he's taking? Yes No Are there Barriersto Adherence? Yes No Has the patient been asked about herbal supplements and therapies, and OTC meds? Yes No Functional Status Description No Information Available Mental Status Description No Information Available Referrals Refer to Reason for Referral Status Appt Date Nathalie Nolan MD consult and treat eczema jw Scheduled 09/29/2019 [address] [place] [address] [phone]
== END 2019-11-06 18:47 | disposition left against medical advice (07) ==
LOC: UCEAST 17:41
DX: Z53.21 Procedure and treatment not carried out due to patient leaving prior to being seen by health care provider (principal)

== ENCOUNTER 2019-11-13 13:14 | Emergency (ER) | payer OTHER ==
[2019-11-13 13:22] VITALS: BP 132/77
--- NOTE | 2019-11-13 14:33 | UC ---
Throat Pain/Nasal Clarence HPI - HPI Summary HPI Summary: Patient is a 34yo male presenting with sore throat and complaint of being "very tired" x3 weeks. Denies nasal congestion and cough. Denies headache, fever, and chills. Notes body aches at time. Denies n/v. Denies change in appetite. Denies any ill contacts. Taking ibuprofen for pain relief. Denies h/o mono. - History of Current Complaint Chief Complaint: UCGeneralIllness Stated Complaint: SORE THROAT Hx Obtained From: Patient Pain Intensity: 7 Pain Scale Used: 0-10 Numeric - Allergies/Home Medications Allergies/Adverse Reactions: Allergies Allergy/AdvReac Type Severity Reaction Status Date / Time No Known Allergies Allergy Verified 11/13/19 13:22 Home Medications: Home Medications NK [No Home Medications Reported] 11/13/19 [History Confirmed 11/13/19] PMH/Surg Hx/FS Hx/Imm Hx Previously Healthy: Yes - Surgical History Surgical History: None Surgery Procedure, Year, and Place: declined - Family History Known Family History: Positive: Hypertension, Diabetes Negative: Blood Disorder - Social History Alcohol Use: Rare Substance Use Type: None Smoking Status (MU): Former Smoker - Immunization History Most Recent Tetanus Shot: UNK Review of Systems All Other Systems Reviewed And Are Negative: Yes Constitutional: Positive: Fatigue ENT: Positive: Sore Throat Respiratory: Positive: Negative Cardiovascular: Positive: Negative Gastrointestinal: Positive: Negative Musculoskeletal: Positive: Myalgia Neurological/Mental Status: Positive: Negative Physical Exam - Summary Physical Exam Summary: Vital Signs Reviewed: Yes A+Ox3, no distress, well-appearing Eyes: Conjunctiva Clear ENT: Hearing grossly normal, TM x 2 clear, moist, uvula midline, no exudate, + pharyngeal erythema, no tonsillar swelling Neck: Positive: Supple, +mild tonsillar node enlargement Respiratory: Positive: No respiratory distress, No accessory muscle use + CTA throughout no w/r Cardiovascular: RRR nl s1, s2 no m/r Musculoskeletal Exam: BOSE x 4 without difficulty Neurological: Positive: Alert Psychological: Positive: age appropriate behavior Skin: Positive: no rash, no ecchymosis Vital Signs: Initial Vital Signs Temp 98.8 F 11/13/19 13:19 Pulse 84 11/13/19 13:19 Resp 16 11/13/19 13:19 BP 132/77 11/13/19 13:19 Pulse Ox 100 11/13/19 13:19 Lab Results 11/13/19 11/13/19 Range/Units 14:43 14:45 Influenza A (Rapid) Negative (Negative) Influenza B (Rapid) Negative (Negative) Group A Strep Rapid Negative (Negative) Throat Pain/Nasal Course/Dx - Course Course Of Treatment: Negative rapid strep and flu tests. I informed the patient that his throat swab was sent for culture and he also consented to testing for mono. I informed the patient that he would be notified with any positive results. Instructed to continue with symptomatic treatment and follow up with pcp for persistent symptoms. Patient voiced understanding and agreed with treatment plan. - Differential Dx/Diagnosis Provider Diagnosis: Pharyngitis, Fatigue Discharge ED - Sign-Out/Discharge Documenting (check all that apply): Patient Departure All imaging exams completed and their final reports reviewed: No Studies - Discharge Plan Condition: Stable Disposition: HOME Patient Education Materials: Mononucleosis (ED), Pharyngitis (ED) Referrals: Erika Landa MD [Primary Care Provider] - If Needed Additional Instructions: Your strep test was negative today. Your throat swab has been sent for culture and you have also been tested for mono. You will be notified only with positive results. You may continue with ibuprofen and tylenol as directed. Throat lozenges and throat sprays may also help alleviate sore throat. Follow up with your primary care provider if symptoms do not improve with 1 week. - Billing Disposition and Condition Condition: STABLE Disposition: Home
[2019-11-13 14:57] LABS: Influenza A Molecular Negative (Negative); Influenza B Molecular Negative (Negative)
[2019-11-15 15:08] LABS: EBV Capsid Ag IgG Ab Positive (Negative); EBV Capsid Ag IgM Ab Negative (Negative); Epstein-Barr Nuclear Antigen Positive (Negative)
== END 2019-11-13 15:02 | disposition home or self-care (01) ==
LOC: UCEAST 13:14
DX: J02.9 Acute pharyngitis, unspecified (principal); R53.83 Other fatigue; M79.10 Myalgia, unspecified site; Z87.891 Personal history of nicotine dependence
CPT/HCPCS: 36415; 86308; 86664; 86665; 87070; 87651; 99211; G0463